=== PATIENT | male | born 1960 | race Two or more races ===

== ENCOUNTER 2016-11-20 06:48 | Inpatient (IN) | payer OTHER ==
[2016-11-20] MEDS ORDERED: ONDANSETRON HCL/PF 4 MG/2 ML VIAL ONE ×3 (07:11→09:24)
[2016-11-20] MEDS ORDERED: ONDANSETRON 4 MG TAB.RAPDIS ONE (07:12)
[2016-11-20] MEDS ORDERED: ONDANSETRON HCL/PF 4 MG/2 ML VIAL IVP ONE (07:30)
[2016-11-20] MEDS ORDERED: ONDANSETRON 4 MG TAB.RAPDIS SL ONE (07:30)
[2016-11-20] MEDS ORDERED: IV NS 0.9% 1,000 ML ONE (08:17)
[2016-11-20] MEDS ORDERED: IV SET PRIMARY PUMP SET 1 EA INFUS.SET MC ONE ×2 (08:17→10:35)
[2016-11-20] MEDS ORDERED: IOHEXOL-300 100 ML VIAL IV ONE (08:28)
[2016-11-20] MEDS ORDERED: IV NS 0.9% 250 ML IV ONE ×2 (08:28→10:35)
[2016-11-20] MEDS ORDERED: CT SWABBABLE VALVE TRANS SET 1 EA INFUS.SET MC ONE (08:29)
[2016-11-20] MEDS ORDERED: IV NS 0.9% 1,000 ML BAG IV ONE (08:30)
[2016-11-20] MEDS ORDERED: LORAZEPAM INJ 2 MG/ML VIAL ONE ×3 (09:25→23:52)
[2016-11-20] MEDS ORDERED: ONDANSETRON HCL/PF - ER 4 MG/2 ML VIAL IV ONE (09:30)
[2016-11-20] MEDS ORDERED: LORAZEPAM INJ 2 MG/ML VIAL IV ONE (09:30)
[2016-11-20] MEDS ORDERED: CLOP75TA2 PO (09:52)
[2016-11-20] MEDS ORDERED: BLOO-668 IN (09:52)
[2016-11-20] MEDS ORDERED: LOSA50TA21 PO (09:52)
[2016-11-20] MEDS ORDERED: INSU100V7 SQ (09:52)
[2016-11-20] MEDS ORDERED: ATOR40TA PO (09:52)
[2016-11-20] MEDS ORDERED: ATEN100T PO (09:52)
[2016-11-20] MEDS ORDERED: INSU100V27 SQ (09:52)
[2016-11-20] MEDS ORDERED: LIDOCAINE VISCOUS 2% UD 15 ML UDC ONE (10:08)
[2016-11-20] MEDS ORDERED: CEFAZOLIN 1 GM in IV D5W 50 ML IV SCH (10:30)
[2016-11-20] MEDS ORDERED: SECONDARY IV SET 1 EA INFUS.SET MC ONE (10:35)
[2016-11-20] MEDS ORDERED: MAG HYDROX/AL HYDROX/SIMETH 30 ML UDC PO PRN (11:00)
[2016-11-20] MEDS ORDERED: MAGNESIUM HYDROXIDE 30 ML UDC PO PRN (11:00)
[2016-11-20] MEDS ORDERED: Z GUARD REMEDY 2 OZ OINT TP PRN (11:00)
[2016-11-20] MEDS ORDERED: ONDANSETRON HCL/PF 4 MG/2 ML VIAL IVP PRN (11:00)
[2016-11-20] MEDS ORDERED: HYDROCODONE/APAP 5/325MG 1 EACH TABLET PO PRN (11:00)
[2016-11-20] MEDS ORDERED: ACETAMINOPHEN 325 MG TABLET PO PRN (11:00)
[2016-11-20] MEDS ORDERED: PANTOPRAZOLE 40 MG TABLET.DR PO SCH (11:00)
[2016-11-20] MEDS ORDERED: CEFAZOLIN 1 GM in IV D5W 50 ML IV ONE (12:00)
[2016-11-20] MEDS: PANTOPRAZOLE 40 MG VIAL IV SCH (13:58)
[2016-11-20] MEDS ORDERED: DIATR MEGLU/DIATRIZOATE SODIUM 120 ML BOTTLE (GASTROGRAPHIN) ONE (16:19)
[2016-11-20] MEDS ORDERED: IV NS 0.9% 1,000 ML IV PRN (17:30)
[2016-11-20] MEDS: CEFAZOLIN 1 GM in IV D5W 50 ML IV SCH (18:14)
[2016-11-20] MEDS ORDERED: ZOLPIDEM TARTRATE 5 MG TABLET PO PRN (22:00)
[2016-11-21] MEDS ORDERED: SECONDARY IV SET 1 EA INFUS.SET MC ONE (02:06)
[2016-11-21] MEDS ORDERED: IV SET PRIMARY PUMP SET 1 EA INFUS.SET MC ONE (02:06)
[2016-11-21] MEDS: CEFAZOLIN 1 GM in IV D5W 50 ML IV SCH (02:31)
[2016-11-21] MEDS ORDERED: LORAZEPAM INJ 2 MG/ML VIAL ONE (06:24)
[2016-11-21] MEDS ORDERED: LORAZEPAM INJ 2 MG/ML VIAL IV ONE ×2 (06:30)
[2016-11-21] MEDS: PANTOPRAZOLE 40 MG VIAL IV SCH (09:03)
== END 2016-11-21 10:40 | disposition home or self-care (01) | DRG 247 ==
DX: K56.60 Unspecified intestinal obstruction (principal); E11.9 Type 2 diabetes mellitus without complications; I25.2 Old myocardial infarction; I25.10 Atherosclerotic heart disease of native coronary artery without angina pectoris; E66.9 Obesity, unspecified